=== PATIENT | male | born 1990 | race Caucasian/White ===

== ENCOUNTER 2016-09-20 05:01 | Emergency (ER) | payer OTHER ==
[~2016-09-20] VITALS: Ht 175.3 cm; Wt 81.6 kg
--- NOTE | 2016-09-20 05:01 | NUR ---
PT BIB [facility], PREBOOK. TAKEN TO OF
[2016-09-20 05:02] VITALS: BP 119/72
--- NOTE | 2016-09-20 05:02 | NUR ---
Dr. Gray evaluating patient
--- NOTE | 2016-09-20 05:02 | NUR ---
26 Y/O M [facility] FOR PREBOOK CLEARANCE. NO S/S OF DISTRESS NOTED AT THE MOMENT. DENIES ANY PAIN OR MED HX.
[2016-09-20 05:11] VITALS: BP 119/72
--- NOTE | 2016-09-20 05:11 | NUR ---
Patient discharged with v/s stable. Written and verbal after care instructions given and explained. Patient verbalized understanding. Police with in custody. All questions addressed prior to discharge. Advised to follow up with PMD.
== END 2016-09-20 05:11 ==
LOC: MED 05:01
DX: Z02.89 Encounter for other administrative examinations (principal)
CPT/HCPCS: 99283